=== PATIENT | female | born 1955 | race Caucasian/White ===

== ENCOUNTER 2017-07-01 22:28 | Emergency (ER) | payer BC, OTHER ==
[~2017-07-01] VITALS: Ht 167.6 cm; Wt 78.0 kg
[~2017-07-01 22:28] MED LIST: ERYT250 PO; FLOVENT110 MCG/A INH; MUCINEX; TYLE3 PO; ZYRT1SYP PO
[2017-07-01 22:31] VITALS: BP 191/89; PULSE 61; RESP 16; TEMP 97.7; O2SAT 99
[2017-07-01 23:00] VITALS: BP 169/82; PULSE 63; RESP 16; O2SAT 97
[2017-07-01] MEDS ORDERED: ASPI81TA81 PO (23:04)
[2017-07-01] MEDS ORDERED: LISI2.5T3 PO (23:04)
[2017-07-01] MEDS ORDERED: CLON0.5T PO (23:04)
[2017-07-01] MEDS ORDERED: NAPR500T2 PO (23:05)
[2017-07-01] MEDS ORDERED: SODIUM CHLORIDE 0.9% FLUSH 10 ML FLUSH IVF PRN (23:15)
[2017-07-01] MEDS ORDERED: ONDANSETRON HCL 4 MG/2 ML VIAL IVP ONE (23:15)
--- NOTE | 2017-07-01 23:30 | PD ---
HPI Chief Complaint: Syncope/Near-Syncope Time Seen by Provider: 23:01 Travel History International Travel<30 days: No Contact w/Intl Traveler<30days: No Traveled to known affect area: No History of Present Illness HPI 61-year-old female presents to the emergency department via private transportation the care of her friend for evaluation of migraine headache after syncopal episode. Patient reports she has not felt well since 7:30 PM and while sitting down watching TV she passed out for 5 seconds. Patient has history of complicated migraine and states she has migraine headaches every day with marked light sensitivity and phonophobia. Patient has had complicated migraines with unilateral weakness, speech disturbance, and associated seizures in the past. Patient reportedly was at her home tonight watching TV with her mother (who she reports was drinking alcohol) and her brother ( who she reports has severe seizure disorder and migraines) when she (while sitting on the couch ) thinks she had loss of consciousness for approximately 5 seconds. Patient reports after the episode of brief loss of consciousness she felt very fatigued and mildly confused. Because her mother was drinking alcohol and her brother cannot drive she called her friend to bring her to the ED. No new onset upper extremity or lower extremity numbness tingling or weakness. Patient states she did not sustain any injury. Patient states that she reported this to her mother who assessed her and said she was fine. Patient states that because she did not feel fine she called her friend to bring her to the hospital. Patient states that she was just seen by her neurologist yesterday as a follow-up for an MRI of the brain that she had had recently that evidence that she had had a remote stroke but was otherwise reportedly okay. She has been getting evaluated for possible MS. She was reportedly given a prescription for an outpatient MRA of the brain because her neurologist is reportedly concerned that she may have an aneurysm. Patient does not report headache of sudden onset thunderclap or worst ever. Patient reports that she has had episodes like this in the past. Patient states present headache is typical of one of her migraines. Patient also states that she has had chest pain. No report of pleuritic chest pain or shortness of breath. Patient had nausea without vomiting. Patient has had no diaphoresis. Patient also reports history of seizure associated with migraine. Patient reports when her migraines are severe she typically has issues with her balance as well as her speech. Patient reports she uses a cane to assist with ambulation but left her cane at home tonight. Patient reports her current pain 8/10 intensity. No vomiting. PFSH Past Medical History Narrative Medical Migraine hypertension CVA Hx Anticoagulant Therapy: Yes (ASA 81 MG) Asthma: Yes Cerebrovascular Accident: Yes Diminished Hearing: No Migraines: Yes Seizures: Yes (WITH MIGRAINES) ?: Not Past Surgical History Other Surgery: Yes (VEINS STRIPPED RIGHT LEG) Social History Alcohol Use: No Tobacco Use: No Substance Use: No Allergies-Medications (Allergen,Severity, Reaction): Coded Allergies: Sulfa (Sulfonamide Antibiotics) (Unverified Allergy, Severe, Nausea/ Vomiting, 07/01/17) amoxicillin (Unverified Allergy, Severe, Nausea/Vomiting, 07/01/17) clavulanic acid (Unverified Allergy, Severe, Nausea/Vomiting, 07/01/17) diatrizoate meglumine (Unverified Allergy, Severe, 07/01/17) gadobenic acid (Unverified Allergy, Severe, 07/01/17) gadodiamide (Unverified Allergy, Severe, 07/01/17) gadoteridol (Unverified Allergy, Severe, 07/01/17) iodixanol (Unverified Allergy, Severe, 07/01/17) iohexol (Unverified Allergy, Severe, 07/01/17) albuterol (Unverified Allergy, Unknown, 07/01/17) Uncoded Allergies: MERCURY (Allergy, Severe, SHOCK, 01/27/06) Reported Meds & Prescriptions Reported Meds & Active Scripts Active Zofran Odt (Ondansetron Odt) 4 Mg Tab 4 Mg SL Q6HR PRN Reported Fiorinal (Butalbital/Aspirin/Caffeine) 50-325-40 Mg Cap 1 Cap PO Q4H PRN Do not exceed 6 capsules/day. Prodrin (Jztljyifakqqu-Mpjrrakl-Rzumklpvihgxj) 65-20-325 Mg Tab 1 Tab PO DIRECTED PRN Naproxen 500 Mg Tab 500 Mg PO BID PRN Lisinopril 2.5 Mg Tab 2.5 Mg PO DAILY Aspir-81 (Aspirin) 81 Mg Tabdr 81 Mg PO DAILY Clonazepam 0.5 Mg Tab 0.5 Mg PO DAILY Review of Systems Except as stated in HPI: all other systems reviewed are Neg General / Constitutional: No: Fever, Chills Eyes: Positive: Photophobia, No: Diploplia HENT: Positive: Headaches, No: Lightheadedness, Neck Pain Cardiovascular: Positive: Chest Pain or Discomfort Respiratory: No: Shortness of Breath Gastrointestinal: Positive: Nausea, No: Vomiting, Abdominal Pain Genitourinary: No: Dysuria Musculoskeletal: No: Myalgias, Arthralgias Skin: No Rash Neurologic: Positive: Weakness, Dizziness, Syncope, Headache, Seizures ( possible "I know when I am going to have a seizure I feel my eyes rolled back in my head and then I have a seizure"), No: Focal Abnormalities, Coordination Problem, Change in Mentation, Slurred Speech, Paresthesia, Sensory Disturbance Psychiatric: No: Anxiety, Depression Hematologic/Lymphatic: No: Easy Bruising Physical Exam Narrative GENERAL: Well-developed well-nourished female no acute distress no respiratory distress hearing sunglasses GCS 15 SKIN: Warm and dry. HEAD: Atraumatic. Normocephalic. EYES: Pupils equal and round reactive to light. Extraocular muscles intact. No scleral icterus. No injection or drainage. ENT: No nasal bleeding or discharge. Mucous membranes pink and moist. Airway is patent. No tongue trauma. NECK: Trachea midline. No JVD. Supple no meningismus no nuchal rigidity. CARDIOVASCULAR: Regular rate and rhythm. RESPIRATORY: No accessory muscle use. Clear to auscultation. Breath sounds equal bilaterally. GASTROINTESTINAL: Abdomen soft, non-tender, nondistended. Hepatic and splenic margins not palpable. MUSCULOSKELETAL: Extremities without clubbing, cyanosis, or edema. No obvious deformities. NEUROLOGICAL: Awake and alert. GCS 15. No obvious cranial nerve deficits. Motor grossly within normal limits. Five out of 5 muscle strength in the arms and legs. No limb ataxia. No pronator drift. DTRs 2+ and equal no clonus. Sensory exam grossly intact as tested. Normal speech. PSYCHIATRIC: Appropriate mood and affect; insight and judgment normal. Data Data Last Documented VS Vital Signs Date Time Temp Pulse Resp B/P (MAP) Pulse Ox O2 Delivery O2 Flow Rate FiO2 07/02/17 01:00 62 16 143/71 (95) 98 Room Air 07/01/17 22:31 97.7 Orders Orders Electrocardiogram (07/01/17 23:01) Complete Blood Count With Diff (07/01/17 23:) Comprehensive Metabolic Panel (07/01/17:) Magnesium (Mg) (07/01/17:) Troponin I (07/01/17:) Act Partial Throm Time (Ptt) (07/01/17:) Prothrombin Time / Inr (Pt) (07/01/17:) Urinalysis - C+S If Indicated (07/01/17:) Chest, Single Ap (07/01/17:) Ct Brain W/O Iv Contrast(Rout) (07/01/17:) Ecg Monitoring (07/01/17:) Iv Access Insert/Monitor (07/01/17) Oximetry (07/01/17:) Ondansetron Inj (Zofran Inj) (07/01/17 23:) Sodium Chloride 0.9% Flush (Ns Flush) (07/01/17:) ^ Seizure Precautions (07/01/17:) Naproxen (Naprosyn) (07/02/17 00:00) Ficmz-Zwcq-Uacty 325-40-50 Mg (Fiorinal (07/02/17 01:45) Ebfs-Hqlus-Pkvi 325-50-40 Mg (Fioricet 3 (07/02/17 01:45) Labs Laboratory Tests Test 07/01/17 23:15 07/02/17 00:29 White Blood Count 9.3 TH/MM3 Red Blood Count 4.26 MIL/MM3 Hemoglobin 12.9 GM/DL Hematocrit 37.8 % Mean Corpuscular Volume 88.9 FL Mean Corpuscular Hemoglobin 30.4 PG Mean Corpuscular Hemoglobin Concent 34.2 % Red Cell Distribution Width 12.4 % Platelet Count 361 TH/MM3 Mean Platelet Volume 7.9 FL Neutrophils (%) (Auto) 36.3 % Lymphocytes (%) (Auto) 52.2 % Monocytes (%) (Auto) 6.8 % Eosinophils (%) (Auto) 4.2 % Basophils (%) (Auto) 0.5 % Neutrophils # (Auto) 3.4 TH/MM3 Lymphocytes # (Auto) 4.9 TH/MM3 Monocytes # (Auto) 0.6 TH/MM3 Eosinophils # (Auto) 0.4 TH/MM3 Basophils # (Auto) 0.0 TH/MM3 CBC Comment DIFF FINAL Differential Comment Prothrombin Time 9.9 SEC Prothromb Time International Ratio 1.0 RATIO Activated Partial Thromboplast Time 24.6 SEC Blood Urea Nitrogen 24 MG/DL Creatinine 0.87 MG/DL Random Glucose 110 MG/DL Total Protein 7.4 GM/DL Albumin 3.9 GM/DL Calcium Level 9.6 MG/DL Magnesium Level 2.5 MG/DL Alkaline Phosphatase 67 U/L Aspartate Amino Transf (AST/SGOT) 18 U/L Alanine Aminotransferase (ALT/SGPT) 27 U/L Total Bilirubin 0.2 MG/DL Sodium Level 140 MEQ/L Potassium Level 3.8 MEQ/L Chloride Level 106 MEQ/L Carbon Dioxide Level 26.7 MEQ/L Anion Gap 7 MEQ/L Estimat Glomerular Filtration Rate 66 ML/MIN Troponin I LESS THAN 0.02 NG/ML Urine Color YELLOW Urine Turbidity CLEAR Urine pH 6.0 Urine Specific [place] 1.015 Urine Protein NEG mg/dL Urine Glucose (UA) NEG mg/dL Urine Ketones NEG mg/dL Urine Occult Blood NEG Urine Nitrite NEG Urine Bilirubin NEG Urine Urobilinogen 0.2 MG/DL Urine Leukocyte Esterase NEG Urine WBC 0-2 /hpf Urine Squamous Epithelial Cells 0-5 /hpf Microscopic Urinalysis Comment CULT NOT INDICATED MDM Medical Decision Making Medical Screen Exam Complete: Yes Emergency Medical Condition: Yes Medical Record Reviewed: Yes Interpretation(s) EKG: Normal sinus rhythm rate 70 right bundle branch block no acute ST elevation injury pattern or ectopy noted Last Impressions Head CT 07/01/172300 Signed Impressions: CONCLUSION: 1. Negative noncontrast head CT. Chest X-Ray 07/01/172300 Signed Impressions: CONCLUSION: Normal one view chest x-ray. CBC & BMP Diagram 07/01/17 23:15 Total Protein 7.4, Albumin 3.9, Calcium Level 9.6, Magnesium Level 2.5, Alkaline Phosphatase 67, Aspartate Amino Transf (AST/SGOT) 18, Alanine Aminotransferase (ALT/SGPT) 27, Total Bilirubin 0.2 Vital Signs Date Time Temp Pulse Resp B/P (MAP) Pulse Ox O2 Delivery O2 Flow Rate FiO2 07/02/17 01:00 62 16 143/71 (95) 98 Room Air 07/02/17 00:30 54 16 156/78 (104) 96 Room Air 07/02/17 00:30 16 07/02/17 00:00 62 16 143/75 (97) 96 Room Air 07/01/17 23:00 16 97 Room Air 07/01/17 23:00 63 16 169/82 (111) 97 Room Air 07/01/17 23:00 63 16 97 07/01/17 22:31 97.7 61 16 191/89 (123) 99 Troponin I: Less than 0.02, not elevated UA: wnl Differential Diagnosis Migraine headache, seizure, syncopal episode, arrhythmia, TIA, CVA Narrative Course Patient placed on surveillance system monitor IV access obtained specimens collected and sent for resulting bedside glucose 114; seizure precautions initiated CT brain noncontrast is read as negative per reading radiologist; patient informed of imaging results; patient requesting naproxen Patient reports typically for her migraine she takes Midrin or Fiorinal Patient states she feels clinically and symptomatically improved however does continue to have some headache states she typically uses Fiorinal; Fiorinal 1 dose ordered however we [facility] not have [facility] and Fioricet is substituted At 1:50 AM lab values and imaging studies along the grossly normal except for EKG did identify a right bundle branch block age-indeterminate and patient is identified to have monocytosis of 52% by CBC is automated differential also mild elevation of BUN 24 but ratio is less than 30-1 unlikely GI bleed At this point time patient's symptoms based on her description seem to be consistent with one of her complicated migraines. Patient is very alert coherent drinking fluids appears to be in no distress has no focality on physical exam and lab values, vital signs, and physical exam and imaging are grossly within normal range and patient appears stable for outpatient management. At 2:35 AM patient reports that she would like to be discharged home; continues to feel improved; up out of bed to bathroom without difficulty or in need of assistance Diagnosis Primary Impression: Complicated migraine Additional Impression: Vasovagal syncope Referrals: Primary Care Physician call for appointment Patient Instructions: General Instructions Additional Instructions: Increase fluid hydration Follow-up with your primary care/ managing physician Continue current medications as presently prescribed Return to the emergency department for any concerns or change in condition Take Zofran as prescribed as needed for nausea and/or vomiting Med/Other Pt SpecificInfo: Prescription(s) given Scripts Ondansetron Odt (Zofran Odt) 4 Mg Tab 4 MG SL Q6HR Y for Nausea/Vomiting, #10 TAB 0 Refills Prov: Nancy Wright MD 07/02/17 Disposition: 01 DISCHARGE HOME Condition: Stable Nancy Wright MD July 01, 2017 23:30
--- NOTE | 2017-07-01 23:36 | RADRPT ---
EXAM DATE: 07/01/2017 11:31 PM EDT AGE/SEX: 61 years / Female INDICATIONS: Syncopal episode today with headache and tachycardia. CLINICAL DATA: This is the patient's initial encounter. Patient reports that signs and symptoms have been present for 1 day and indicates a pain score of 4/10. MEDICAL/SURGICAL HISTORY: Cerebrovascular disease. Seizure. Anticoagulant therapy. None. RADIATION DOSE: 53.93 CTDI (mGy) COMPARISON: PO[facility], MR BRAIN W AND W/O CONTRAST, 05/23/2017. . TECHNIQUE: CT of the head without contrast. Using automated exposure control and adjustment of the mA and/or kV according to patient size, radiation dose was kept as low as reasonably achievable to ob tain optimal diagnostic quality images. FINDINGS: Cerebrum: The ventricles are normal for age. No evidence of midline shift, mass lesion, hemorrhage or acute infarction. No extraaxial fluid collections are seen. Posterior Fossa: The cerebellum and brainstem are intact. The 4th ventricle is midline. The cerebe llopontine angle is unremarkable. Extracranial: The visualized portion of the orbits is intact. Skull: The calvaria is intact. No evidence of skull fracture. CONCLUSION: 1. Negative noncontrast head CT. Electronically signed by: Nguyễn Chaudhary MD 07/01/2017 11:34 PM EDT
[2017-07-01] MEDS ORDERED: ACET1TAB17 PO (23:37)
[2017-07-01 23:39] LABS: AUTOMATED NEUTROPHIL # 3.4 TH/MM3 (1.8-7.7); BASOPHIL % 0.5 % (0.0-2.0); EOSINOPHIL # 0.4 TH/MM3 (0-0.4); EOSINOPHIL % 4.2 % (0.0-4.0); HEMATOCRIT 37.8 % (35.0-46.0); HEMOGLOBIN 12.9 GM/DL (11.6-15.3); LYMPH % 52.2 % (9.0-44.0); LYMPHOCYTE # 4.9 TH/MM3 (1.0-4.8); MEAN CELL VOLUME 88.9 FL (80.0-100.0); MEAN CORPUSCULAR HEMOGLOBIN 30.4 PG (27.0-34.0); MEAN CORPUSCULAR HGB CONC 34.2 % (32.0-36.0); MEAN PLATELET VOLUME 7.9 FL (7.0-11.0); MONO % 6.8 % (0.0-8.0); MONOCYTE # 0.6 TH/MM3 (0-0.9); NEUT % 36.3 % (16.0-70.0); PLATELET COUNT 361 TH/MM3 (150-450); RED BLOOD COUNT 4.26 MIL/MM3 (4.00-5.30); RED CELL DISTRIBUTION WIDTH 12.4 % (11.6-17.2); WHITE BLOOD COUNT 9.3 TH/MM3 (4.0-11.0)
--- NOTE | 2017-07-01 23:44 | RADRPT ---
EXAM DATE: 07/01/2017 11:39 PM EDT AGE/SEX: 61 years / Female INDICATIONS: Dizziness, weakness, syncopal episode today CLINICAL DATA: This is the patient's initial encounter. Patient reports that signs and symptoms have been present for 1 day and indicates a pain score of 0/10. MEDICAL/SURGICAL HISTORY: None. None. COMPARISON: No prior [facility] exams available for comparison. FINDINGS: A single AP view of the chest demonstrates the lungs to be symmetrically aerated without evidence of mass, infiltrate or effusion. The cardiomediastinal contours are unremarkable. Osseous structures a re intact. CONCLUSION: Normal one view chest x-ray. Electronically signed by: Nguyễn Chaudhary MD 07/01/2017 11:43 PM EDT
[2017-07-01 23:52] LABS: PROTHROMBIN TIME - PATIENT 9.9 SEC (9.8-11.6)
[2017-07-01 23:53] LABS: CHLORIDE 106 MEQ/L (98-107); SODIUM (NA) 140 MEQ/L (136-145)
[2017-07-01 23:56] LABS: CALCIUM 9.6 MG/DL (8.5-10.1)
[2017-07-01 23:57] LABS: ALBUMIN 3.9 GM/DL (3.4-5.0); BICARBONATE 26.7 MEQ/L (21.0-32.0); BLOOD UREA NITROGEN 24 MG/DL (7-18); GLUCOSE,RANDOM 110 MG/DL (74-106); MAGNESIUM 2.5 MG/DL (1.5-2.5)
[2017-07-02] VITALS: BP 143/75; PULSE 62; RESP 16; O2SAT 96
[2017-07-02] LABS: ALT (GPT) 27 U/L (10-53); AST (GOT) 18 U/L (15-37); CREATININE 0.87 MG/DL (0.50-1.00); GLOMERULAR FILTRATION RATE 66 ML/MIN (>89)
[2017-07-02] MEDS ORDERED: NAPROXEN 375 MG TAB PO ONE
[2017-07-02 00:01] LABS: TOTAL BILIRUBIN ADULT 0.2 MG/DL (0.2-1.0); TOTAL PROTEIN 7.4 GM/DL (6.4-8.2)
[2017-07-02 00:03] LABS: ALKALINE PHOSPHATASE 67 U/L (45-117)
[2017-07-02 00:05] LABS: TROPONIN I LESS THAN 0.02 NG/ML (0.02-0.05)
[2017-07-02] MEDS ORDERED: FIORINAL2 PO (00:08)
[2017-07-02 00:30] VITALS: BP 156/78; PULSE 54; RESP 16; O2SAT 96
[2017-07-02 00:44] LABS: BILIRUBIN, URINE NEG (NEG); BLOOD, URINE NEG (NEG); GLUCOSE,URINE NEG (NEG); KETONE, URINE NEG (NEG); NITRITE,URINE NEG (NEG); URINE COLOR YELLOW (YELLW/STRAW); URINE LEUKOCYTE ESTERASE NEG (NEG)
[2017-07-02 00:52] LABS: SQUAMOUS EPITHELIAL CELL URINE 0-5 /hpf (0-5); WBC, URINE 0-2 /hpf (0-5)
[2017-07-02 01:00] VITALS: BP 143/71; PULSE 62; RESP 16; O2SAT 98
[2017-07-02] MEDS ORDERED: ASPIRIN 325 MG/CAFFEINE 40 MG/BUTALBITAL 50 MG CAP PO ONE (01:45)
[2017-07-02] MEDS ORDERED: ACETAMIN 325 MG/BUTALBITAL 50 MG/CAFFEINE 40 MG TAB PO SCH (01:45)
[2017-07-02 02:00] VITALS: BP 150/73; PULSE 54; RESP 16; O2SAT 97
[2017-07-02] MEDS ORDERED: ZOFR4TAB3 SL (02:04)
[2017-07-02 02:30] VITALS: BP 155/79; PULSE 52; RESP 16; O2SAT 99
--- NOTE | 2017-07-02 14:58 | EKG ---
Date Performed: 07/01/2017 Time Performed: 23:12:15 PTAGE: 61 years EKG: Sinus rhythm RIGHT BUNDLE BRANCH BLOCK ABNORMAL ECG NO PREVIOUS TRACING DOCTOR: Mason Linares Interpretating Date/Time 07/02/2017 14:57:20
== END 2017-07-02 02:50 | disposition home or self-care (01) ==
LOC: PHED 22:28
DX: G43.109 Migraine with aura, not intractable, without status migrainosus (principal); R55 Syncope and collapse; R07.9 Chest pain, unspecified; R00.0 Tachycardia, unspecified; R94.31 Abnormal electrocardiogram [ECG] [EKG]; G40.909 Epilepsy, unspecified, not intractable, without status epilepticus; I10 Essential (primary) hypertension; J45.909 Unspecified asthma, uncomplicated; Z86.73 Personal history of transient ischemic attack (TIA), and cerebral infarction without residual deficits
CPT/HCPCS: 70450; 71045; 80053; 81001; 83735; 84484; 85025; 85610; 85730; 93005